=== PATIENT | female | born 1990 | race Caucasian/White ===

== ENCOUNTER 2017-01-26 21:55 | Emergency (ER) | payer BC ==
[~2017-01-26] VITALS: Ht 175.3 cm; Wt 65.4 kg
[2017-01-26 22:00] VITALS: TEMP 36.8; Ht 175.3 cm; Wt 65.4 kg
[2017-01-26 22:40] LABS: BASO % 0.4 %; BASO ABS # 0.04 K/uL (0-0.2); COMPLETE YES; EOS % 3.2 %; HEMATOCRIT 39.9 % (37-47); IG% 0.1 %; LYMPH % 30.3 %; LYMPH ABS # 2.95 K/uL (1.2-3.4); MEAN CELL VOLUME 88.5 fL (80-100); MEAN CORPUSCULAR HEMOGLOBIN 29.9 pg (25-34); MEAN CORPUSCULAR HGB CONC 33.8 g/dl (32-36); MEAN PLATELET VOLUME 11.2 fL (7.4-10.4); MONO % 5.6 %; NEUT % 60.4 %; PLATELET COUNT 233 K/uL (130-400); RED BLOOD COUNT 4.51 M/uL (4.2-5.4); WHITE BLOOD COUNT 9.72 K/uL (4.8-10.8)
[2017-01-26] MEDS ORDERED: ALBU18002 INH (22:40)
[2017-01-26] MEDS ORDERED: DICL75TA2 PO (22:40)
[2017-01-26] MEDS ORDERED: FLUT230A INH (22:40)
[2017-01-26] MEDS ORDERED: TOPI25TA99 PO (22:40)
[2017-01-26 22:51] LABS: PARTIAL THROMBOPLASTIN RATIO 1.2; PROTHROMBIN TIME (PATIENT) 11.2 SECONDS (9.0-12.0)
[2017-01-26 22:57] LABS: BUN/CREATININE RATIO 12.9 (10-20); CALCIUM 9.3 mg/dl (8.5-10.1); CREATININE 0.82 mg/dl (0.60-1.20); POTASSIUM 3.9 mmol/L (3.5-5.1)
--- NOTE | 2017-01-26 23:01 | DIAGNOSTIC IMAGING REPORT ---
ULTRASOUND VENOUS DOPPLER LWR EXT BILA CLINICAL HISTORY: Bilateral leg pain. Bruising. History of hypercoagulability disorder COMPARISON STUDY: No previous studies for comparison. FINDINGS: Real-time and color flow Doppler imaging were performed. Flow was seen within the femoral, popliteal and calf veins with no intraluminal thrombus demonstrated. The saphenous vein is patent. IMPRESSION: No evidence of lower extremity DVT. Electronically signed by: Kevin Silva M.D. 01/26/2017 11:00 PM Dictated Date/Time: 01/26/2017 10:59 PM
--- NOTE | 2017-01-26 23:54 | EMERGENCY ROOM VISIT NOTE ---
History First contact with patient: 22:06 Chief Complaint: OTHER COMPLAINT Stated Complaint: B/L LEG BRUISING, ONE ON HIP- NO INJURY, SOB, [place] History of Present Illness The patient is a 26 year old female who presents to the Emergency Room with complaints of leg bruising. The patient states that she flew back from [place] 2 days ago. She states that today, she noticed multiple bruises on her legs. She reports some tightness in her legs. The patient reports that she has a history of a clotting disorder. The patient has a mild headache and used her inhaler today. She does have a history of asthma and denies any significant shortness of breath at this time. She denies any chest pain. She rates her discomfort a 2/10. She called her primary care provider and they told her to come here because they were concerned about a blood clot. Review of Systems A complete 10 point review of systems was reviewed with the patient with pertinent positives and negatives as per history of present illness. All else were negative. Social History Smoking Status: Never Smoker Current/Historical Medications Scheduled Fluticasone-Salmeterol 230/21 Mcg (Advair Hfa 230/21 Mcg), 2 PUFFS INH BID Scheduled PRN Albuterol Sulfate (Proair Respiclick), 2 PUFFS INH Q4H PRN for Wheezing Diclofenac Sodium (Voltaren), 75 MG PO BID PRN for Headache Topiramate (Topamax ), 25 MG PO DAILY PRN for Headache Allergies Coded Allergies: No Known Allergies (Unverified , 01/26/17) Physical Exam Vital Signs Date Time Temp Pulse Resp B/P (MAP) Pulse Ox O2 Delivery O2 Flow Rate FiO2 01/27/17 00:00 70 16 104/59 97 01/26/17 23:06 76 16 107/65 100 Room Air 01/26/17 22:00 36.8 83 18 112/75 99 Room Air Physical Exam VITALS: Vitals are noted on the nurse's note and reviewed by myself. Vital signs stable. GENERAL: This is a 26-year-old female, in no acute distress, nondiaphoretic, well-developed well-nourished. SKIN: There are several bruises to bilateral lower extremities. HEART: Regular rate and rhythm without murmurs gallops or rubs. LUNGS: Clear to auscultation bilaterally without wheezes, rales or rhonchi. No retractions or accessory muscle use. EXTREMITIES: There is no tenderness to palpation of either lower extremity. NEURO: Patient was alert and oriented to person place and time. Medical Decision & Procedures ER Provider Diagnostic Interpretation: ULTRASOUND VENOUS DOPPLER LWR EXT BILA FINDINGS: Real-time and color flow Doppler imaging were performed. Flow was seen within the femoral, popliteal and calf veins with no intraluminal thrombus demonstrated. The saphenous vein is patent. IMPRESSION: No evidence of lower extremity DVT. CHEST X-RAY: No acute cardiopulmonary abnormalities. Laboratory Results 01/26/17 22:25 Red Blood Count 4.51, Mean Corpuscular Volume 88.5, Mean Corpuscular Hemoglobin 29.9, Mean Corpuscular Hemoglobin Concent 33.8, Mean Platelet Volume 11.2, Neutrophils (%) (Auto) 60.4, Lymphocytes (%) (Auto) 30.3, Monocytes (%) (Auto) 5.6, Eosinophils (%) (Auto) 3.2, Basophils (%) (Auto) 0.4, Neutrophils # (Auto) 5.87, Lymphocytes # (Auto) 2.95, Monocytes # (Auto) 0.54, Eosinophils # (Auto) 0.31, Basophils # (Auto) 0.04 01/26/17 22:25 Test 01/26/17 22:25 White Blood Count 9.72 K/uL (4.8-10.8) Red Blood Count 4.51 M/uL (4.2-5.4) Hemoglobin 13.5 g/dL (12.0-16.0) Hematocrit 39.9 % (37-47) Mean Corpuscular Volume 88.5 fL (80-100) Mean Corpuscular Hemoglobin 29.9 pg (25-34) Mean Corpuscular Hemoglobin Concent 33.8 g/dl (32-36) Platelet Count 233 K/uL (130-400) Mean Platelet Volume 11.2 fL (7.4-10.4) Neutrophils (%) (Auto) 60.4 % Lymphocytes (%) (Auto) 30.3 % Monocytes (%) (Auto) 5.6 % Eosinophils (%) (Auto) 3.2 % Basophils (%) (Auto) 0.4 % Neutrophils # (Auto) 5.87 K/uL (1.4-6.5) Lymphocytes # (Auto) 2.95 K/uL (1.2-3.4) Monocytes # (Auto) 0.54 K/uL (0.11-0.59) Eosinophils # (Auto) 0.31 K/uL (0-0.5) Basophils # (Auto) 0.04 K/uL (0-0.2) RDW Standard Deviation 40.4 fL (36.4-46.3) RDW Coefficient of Variation 12.6 % (11.5-14.5) Immature Granulocyte % (Auto) 0.1 % Immature Granulocyte # (Auto) 0.01 K/uL (0.00-0.02) Prothrombin Time 11.2 SECONDS (9.0-12.0) Prothromb Time International Ratio 1.0 (0.9-1.1) Activated Partial Thromboplast Time 31.3 SECONDS (21.0-31.0) Partial Thromboplastin Ratio 1.2 Anion Gap 7.0 mmol/L (3-11) Est Creatinine Clear Calc Drug Dose 109.2 ml/min Estimated GFR () 116.1 Estimated GFR (Non- 100.2 BUN/Creatinine Ratio 12.9 (10-20) Calcium Level 9.3 mg/dl (8.5-10.1) ED Course The patient was evaluated as above. Labs were drawn and IV access was obtained. Ultrasound of bilateral legs was performed and read by radiology as above. Patient was reevaluated and findings were discussed. Discharge instructions were reviewed with the patient. The patient verbalized understanding of my assessment and treatment plan and was discharged home in good condition. Medical Decision Differential diagnosis includes DVT, superficial thrombosis, ITP, TTP, among others. The patient is a 26-year-old female who presents today complaining of bruising of her lower extremities. The patient has a history of a hypercoagulable disorder and is concerned about blood clots in the legs. She did recently have a long plane ride. Ultrasound of the legs showed no DVT. Patient is essentially asymptomatic. Labs were unremarkable. The cause of the bruising is unknown. Platelets are normal. Patient was instructed to follow-up with her PCP for further evaluation. Based on the patient's presentation and work up, I feel the patient is stable for outpatient treatment. The patient was educated to return to the emergency department for any worsening of their current condition or new/concerning symptoms. She will follow up with her PCP. Medication reconciliation: I attest that I have personally reviewed the patient 's current medication list. Blood pressure screening: Patient was found to have normal blood pressure on screening and does not require follow-up. Impression Primary Impression: Ecchymosis Departure Information Dispostion Home / Self-Care Condition GOOD Referrals No Doctor, Assigned (PCP) Patient Instructions [facility] Additional Instructions Call your primary care provider tomorrow to schedule follow-up. Return to the emergency department with any significant shortness of breath, chest pain, worsening of your current condition or new/concerning symptoms.
[2017-01-27] VITALS: BP 104/59; PULSE 70; O2SAT 97
--- NOTE | 2017-01-27 06:12 | DIAGNOSTIC IMAGING REPORT ---
CHEST ONE VIEW PORTABLE CLINICAL HISTORY: sob dyspnea COMPARISON STUDY: No previous studies for comparison. FINDINGS: The bones soft tissues and hemidiaphragms are normal. The cardiomediastinal silhouette is normal. The lungs are clear. The pulmonary vasculature is normal. IMPRESSION: Negative chest. Electronically signed by: Loc Granger M.D. 01/27/2017 6:10 AM Dictated Date/Time: 01/27/2017 6:10 AM
== END 2017-01-27 | disposition home or self-care (01) ==
LOC: C.EDB 22:00 → C.EDC 01-27
DX: R23.3 Spontaneous ecchymoses (principal); R06.02 Shortness of breath; R51 Headache; M79.605 Pain in left leg; M79.604 Pain in right leg; Z86.79 Personal history of other diseases of the circulatory system